=== PATIENT | male | born 1975 | race Caucasian/White ===

== ENCOUNTER 2017-04-26 07:06 | Emergency (ER) | payer SELFPAY ==
[2017-04-26 07:14] VITALS: BP 125/82; PULSE 85; RESP 16; TEMP 98.2; O2SAT 100
--- NOTE | 2017-04-26 07:42 | C.PDOC ---
History Of Present Illness Patient is a 41 year old male presents to ED for evaluation of dry skin to the back of his neck for the past 2 weeks. Denies similar dry skin to any other parts of his body. Denies any potential allergens, difficulty breathing, difficulty swallowing, throat pain, swelling, fever, or any other associated symptoms at this time. Has not tried any medication to the area. Time Seen by Provider: 04/26/17 07:29 Chief Complaint (Nursing): Abnormal Skin Integrity History Per: Patient History/Exam Limitations: no limitations Onset/Duration Of Symptoms: Days (2 weeks) Current Symptoms Are (Timing): Still Present Location Of Injury: Posterior: Neck Quality Of Symptoms: Itching. denies: Draining Recent travel outside of the [place]: No Additional History Per: Patient Past Medical History Reviewed: Historical Data, Nursing Documentation, Vital Signs Vital Signs: Last Vital Signs Temp 98.2 F 04/26/17 07:12 Pulse 85 04/26/17 07:12 Resp 16 04/26/17 07:12 BP 125/82 04/26/17 07:12 Pulse Ox 100 04/26/17 08:12 Family History: States: Unknown Family Hx - Social History Hx Tobacco Use: No Hx Alcohol Use: No Hx Substance Use: No - Immunization History Hx Tetanus Toxoid Vaccination: No Hx Influenza Vaccination: No Hx Pneumococcal Vaccination: No Review Of Systems Except As Marked, All Systems Reviewed And Found Negative. Constitutional: Negative for: Fever, Chills Musculoskeletal: Negative for: Neck Pain Skin: Positive for: Other (dry skin to back of his neck). Negative for: Bruising Physical Exam - Physical Exam Appears: Non-toxic, No Acute Distress Skin: Warm, Dry, Other (dry scaling on erythematous base to posterior aspect neck ; no satellite lesions, no central clearing) Head: Atraumatic, Normacephalic Eye(s): bilateral: Normal Inspection, EOMI Nose: Normal Oral Mucosa: Moist, No Drooling Tongue: Normal Appearing, No Swelling Lips: Normal Appearing, No Swelling Throat: Normal, No Erythema, No Exudate Neck: Normal ROM, No Midline Cervical Tenderness, No Paracervical Tenderness, Supple Chest: Symmetrical Cardiovascular: Rhythm Regular Respiratory: Normal Breath Sounds, No Accessory Muscle Use Extremity: Normal ROM Neurological/Psych: Oriented x3, Normal Speech ED Course And Treatment O2 Sat by Pulse Oximetry: 100 (RA) Pulse Ox Interpretation: Normal Progress Note: Patient was advised to avoid potential allergens, and to follow up with physician in 1-2 days for further evaluation. Disposition - Disposition Referrals: 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 - Scribe Statement The provider has reviewed the documentation as recorded by the Scribe [place] Scott All medical record entries made by the Scribe were at my direction and personally dictated by me. I have reviewed the chart and agree that the record accurately reflects my personal performance of the history, physical exam, medical decision making, and the department course for this patient. I have also personally directed, reviewed, and agree with the discharge instructions and disposition.
== END 2017-04-26 07:45 | disposition home or self-care (01) ==
LOC: C.ER 07:06
DX: R21 Rash and other nonspecific skin eruption (principal)